=== PATIENT | female | born 1965 | race Caucasian/White ===

== ENCOUNTER 2017-01-24 07:44 | Day surgery (SDC) | payer MEDICAID ==
--- NOTE | 2017-01-24 09:32 | Operative Note ---
Colonoscopy (Kath) Procedure date: 01/24/17 Date of : 65 Procedure:Colonoscopy Colonoscopy with cold snare polypectomy Indications: Mrs. Orr is a 51-year-old female who is here for screening colonoscopy. She did have a colonoscopy in 1997 by me and had IBS. She continues to have some constipation predominant IBS. She reports occasional abdominal discomfort. She reports no rectal bleeding, weight loss, change in her bowel habits or regular abdominal pain. She does state that her maternal grandmother may have had rectal cancer. Performing Provider: Luciana Stockton MD Referrring Provider: Katharina Voss M.D. Sedation: Fentanyl 200 mg IV/Versed 14 mg IV Procedure: Prior to the procedure, a history and physical exam was performed, and patient medications and allergies were reviewed. The risks and benefits of the procedure and the sedation options and risks were discussed with the patient. All questions were answered and informed consent was obtained. Patient identification and proposed procedure were verified by the physician and the nurse. The patient was placed in a left lateral decubitus position. Throughout the procedure, the patient's blood pressure, pulse, and oxygen saturations were monitored continuously. Findings: On digital rectal examination there was normal rectal tone. There were no external hemorrhoids. The colonoscope was introduced through the anal canal to the rectum and advanced to the cecum. The ileocecal valve and appendiceal orifice were identified. The scope was advanced a short distance into the ileum which appeared grossly normal. The scope was then withdrawn into the colon. The cecum, ascending and transverse colon and mucosa were grossly normal. There was a single very small but pedunculated polyp that was 5-6 mm and removed via cold snare polypectomy in the transverse colon. There were scattered diverticuli throughout the descending and sigmoid colon (LEFT colon). There was extensive pericolonic fibrosis/adhesions in the sigmoid colon possibly related to her former hysterectomy. The rectum itself was normal. Upon retroflexion within the rectum there were grade 1 internal hemorrhoids. Impressions: 1. Small pedunculated transverse colon polyp 2. Left-sided diverticulosis with extensive sigmoid pericolonic adhesions 3. Grade 1 internal hemorrhoids Recommendations: I will follow up the polyp histology and recommend repeat screening/surveillance colonoscopy again in 5 years based on the polyp and her family history. I would encourage a high-fiber bowel regimen and dietary measures on a long-term maintenance basis. Complications: None EBL (ml): 0 at 0932
[2017-01-24 14:01] VITALS: BP 120/83
== END 2017-01-24 10:25 | disposition home or self-care (01) ==
LOC: SDC 07:44
PROVIDERS: Internal Medicine Gastroenterology
PROC: 0DBL8ZX Excision of Transverse Colon, Via Natural or Artificial Opening Endoscopic, Diagnostic (ICD-10-PCS; principal; 2017-01-24 09:00)
DX: Z12.11 Encounter for screening for malignant neoplasm of colon (principal); Z80.0 Family history of malignant neoplasm of digestive organs; K63.5 Polyp of colon; K58.1 Irritable bowel syndrome with constipation; K64.0 First degree hemorrhoids; K57.30 Diverticulosis of large intestine without perforation or abscess without bleeding; K66.0 Peritoneal adhesions (postprocedural) (postinfection)